=== PATIENT | female | born 1965 | race Caucasian/White ===

== ENCOUNTER 2017-06-03 00:09 | Observation (INO) | payer BC ==
[2017-06-03 00:46] LABS: #Basophils 0.1 thou/uL (0.0-0.2); #Eosinphils 0.2 thou/uL (0.0-0.7); #Lymphocytes 3.4 thou/uL (1.20-3.40); #Monocytes 0.6 thou/uL (0.11-0.59); #Neutrophils 5.8 thou/uL (1.40-6.50); %Basophils 1.1 % (0.0-1.0); %Lymphocytes 33.7 % (21.0-51.0); Hematocrit 43.5 % (36.0-47.0); Mean Platelet Volume 9.8 fL (7.4-10.4); Red Blood Cell (RBC) Count 4.75 mill/uL (4.20-5.40); White Blood Cell (WBC) Count 10.2 thou/uL (4.8-10.8)
[2017-06-03 01:05] LABS: ALT (SGPT) 11 U/L (8-55); AST (SGOT) 15 U/L (5-34); Alkaline Phosphatase 74 U/L (40-150); Anion Gap 9 mmol/L (10-20); BUN (Urea Nitrogen) 20 mg/dL (9.8-20.1); Bilirubin, Total 0.3 mg/dL (0.2-1.2); Calc. Creatinine Clearance 0 mL/min (70-130); Calcium 9.3 mg/dL (7.8-10.44); Carbon Dioxide 31 mmol/L (22-29); Chloride 102 mmol/L (98-107); Estimated GFR-MDRD 61; Globulin 3.1 g/dL (2.4-3.5); Protein, Total 7.2 g/dL (6.0-8.3)
[2017-06-03 01:08] LABS: Troponin I Less than 0.010 ng/mL (< 0.028)
[2017-06-03] MEDS ORDERED: Potassium Chloride 20 MEQ TAB ONE (01:58)
[2017-06-03] MEDS ORDERED: Acetaminophen 325 MG TAB PO PRN (02:44)
[2017-06-03 03:11] VITALS: BMI 25.1
[2017-06-03 04:58] LABS: Troponin I Less than 0.010 ng/mL (< 0.028)
[2017-06-03] MEDS ORDERED: Nitroglycerin 2% Ointment 1 INCH/1 GM Packet TOP SCH (06:00)
[2017-06-03 07:10] LABS: Troponin I Less than 0.010 ng/mL (< 0.028)
[2017-06-03] MEDS ORDERED: Aspirin 325 MG TAB PO SCH (09:00)
--- NOTE | 2017-06-03 09:00 | RAD ---
CHEST ONE VIEW: HISTORY: Chest pain. Shortness of breath. COMPARISON: None. FINDINGS: Normal cardiac silhouette. The pulmonary vessels and hilum are normal. No masses or consolidation . No pneumothorax or osseous abnormalities. IMPRESSION: No acute cardiopulmonary process. POS: [facility]
[2017-06-03 13:41] VITALS: BP 118/57; TEMP 98.8
--- NOTE | 2017-06-03 14:59 | NM ---
NUCLEAR MEDICINE CARDIAC MYOCARDIAL PERFUSION SPECT EJECTION FRACTION STUDY WALL MOTION CINE: HISTORY: 52-year-old hypertensive female with dyslipidemia and chest pain. TECHNIQUE: Number of days: 1 Rest study: Tc99m sestamibi (Cardiolite) dose: 10.2 mCi Exercise stress: treadmill. Stress study: Tc99m sestamibi (Cardiolite) dose: 31.0 mCi FINDINGS: CARDIAC (MYOCARDIAL PERFUSION) SPECT There are no reversible myocardial perfusion defects. EJECTION FRACTION STUDY EF = 71% WALL MOTION CINE Normal. IMPRESSION: No evidence of reversible ischemia. ILIANA Dixon POS: [facility]
== END 2017-06-03 14:24 | disposition home or self-care (01) ==
LOC: ERS 00:09 → 2SW 02:35
PROVIDERS: ADMIT Family Medicine; ATTEND Family Medicine
DX: R07.9 Chest pain, unspecified (principal); E78.5 Hyperlipidemia, unspecified; I10 Essential (primary) hypertension; E03.9 Hypothyroidism, unspecified; R06.02 Shortness of breath; Z79.899 Other long term (current) drug therapy; Z98.890 Other specified postprocedural states; Z82.49 Family history of ischemic heart disease and other diseases of the circulatory system; Z80.1 Family history of malignant neoplasm of trachea, bronchus and lung; Z80.6 Family history of leukemia
CPT/HCPCS: 36415; 71010; 78452; 80053; 80061; 82553; 83690; 84443; 84484; 85025; 93005; 93017; A9500; G0378

== ENCOUNTER 2018-01-13 15:54 | Emergency (ER) | payer BC ==
[~2018-01-13 15:54] MED LIST: Iopamidol 370 76% 100 ML VIAL ONE
[2018-01-13] MEDS ORDERED: Methocarbamol 500 MG TAB ONE (16:34)
[2018-01-13] MEDS ORDERED: Ondansetron HCl/PF 4 MG/2 ML Vial ONE (16:35)
[2018-01-13] MEDS ORDERED: Ketorolac Tromethamine 30 MG/ML VIAL ONE (16:35)
[2018-01-13] MEDS ORDERED: Pantoprazole 40 MG VIAL ONE (16:35)
[2018-01-13 17:00] LABS: #Basophils 0.1 thou/uL (0.0-0.2); #Eosinphils 0.1 thou/uL (0.0-0.7); #Lymphocytes 1.7 thou/uL (1.20-3.40); #Monocytes 0.6 thou/uL (0.11-0.59); #Neutrophils 7.5 thou/uL (1.40-6.50); %Eosinophils 1.3 % (0.0-10.0); %Monocytes 5.4 % (0.0-10.0); %Neutrophils 75.2 % (42.0-75.0); Hemoglobin 16.1 g/dL (12.0-16.0); Mean Corpuscular Hemoglobin 30.4 pg (27.0-31.0); Mean Corpuscular Volume 86.9 fl (81.0-99.0); Mean Platelet Volume 10.2 fL (7.4-10.4); Platelet Count 232 thou/uL (130-400); RBC Distribution Width 12.2 % (11.5-14.5)
[2018-01-13 17:01] LABS: Bilirubin Negative (Negative); Blood, Urine Negative (Negative); Clarity Hazy (Clear); Glucose, Urine (Dipstick) Negative (Negative); Leukocyte Small (Negative); Nitrite Negative (Negative); Protein, Urine (Dipstick) Negative (Neg-Trace); Urobilinogen 0.2 mg/dL (0.2-1.0); pH, Urine 6.5 (5.0-9.0)
[2018-01-13 17:02] LABS: Bacteria/HPF 2+ HPF (None Seen); RBC/HPF None Seen HPF (0-3)
[2018-01-13 17:16] LABS: ALT (SGPT) 45 U/L (8-55); AST (SGOT) 31 U/L (5-34); Albumin 4.5 g/dL (3.5-5.0); Alkaline Phosphatase 66 U/L (40-150); Anion Gap 16 mmol/L (10-20); BUN (Urea Nitrogen) 14 mg/dL (9.8-20.1); Bilirubin, Total 0.7 mg/dL (0.2-1.2); CK (CPK) 37 U/L (29-168); CKMB 1.1 ng/mL (0-6.6); Calc. Creatinine Clearance 0 mL/min (70-130); Calcium 9.8 mg/dL (7.8-10.44); Carbon Dioxide 24 mmol/L (22-29); Chloride 105 mmol/L (98-107); Estimated GFR-MDRD 75; Glucose 89 mg/dL (70-105); Lipase 14 U/L (8-78); Potassium 3.4 mmol/L (3.5-5.1); Protein, Total 7.5 g/dL (6.0-8.3); Sodium 142 mmol/L (136-145); Troponin I Less than 0.010 ng/mL (< 0.028)
[2018-01-13] MEDS ORDERED: traMADol HCl 50 MG TAB ONE (17:59)
--- NOTE | 2018-01-13 18:32 | CT ---
ABDOMEN CT WITH CONTRAST: PELVIS CT WITH CONTRAST: HISTORY: Abdominal pain. Elevated liver enzymes. COMPARISON: 03/10/2014 TECHNIQUE: An abdomen and pelvis CT was performed with IV contrast. Enteric contrast was not administered. Cor onal reformatted images were submitted for interpretation. FINDINGS: ABDOMEN: Chronic changes in the lung bases. Heart size is normal. No significant pericardial fluid . The descending thoracic aorta and abdominal aorta have a normal caliber. No periaortic fat strand ing. Intrahepatic and extrahepatic portal vein is patent. Gallbladder is unremarkable. The liver, spleen, pancreas, and adrenal glands have appropriate enhancement. No gastrohepatic, retrocrural, or periportal lymphadenopathy. No mesenteric mass, lymphadenopathy, f ree air, or free fluid. There are nonspecific, nonenlarged periaortic and aortocaval lymph nodes. Symmetric hyperenhancement of the kidneys. No evidence of obstructive uropathy. There is a subcenti meter hypodensity in the left kidney, which is too small to characterize. Limited evaluation of the alimentary canal. Gastric mucosa, duodenum, and multiple normal caliber sm all bowel loops are noted. The ileocecal junction is normal. Normal caliber appendix. Scattered fe ole material in a nondistended, nondilated colon. Diverticulosis without evidence of diverticulitis. PELVIS: The urinary bladder is decompressed. Trace amount of fluid in the pelvis. No lymphadenopat hy or free air. Heterogeneous uterus with a peripherally enhancing, centrally hypodense focus, measu ring 2.4 cm anteroposterior x 2.8 cm mediolateral x 2.7 cm craniocaudal, suggesting a degenerating fi broid uterus and leiomyoma. Additional leiomyomata may be present. No lytic or blastic lesion in the osseous structures. Stable sclerotic focus in the lower thoracic s pine. IMPRESSION: 1. Nonspecific retroperitoneal lymph nodes. Correlate clinically. 2. No evidence of bowel obstruction. Normal caliber appendix. 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 Correlate clinically with surgical hi story. 3. Uterine leiomyoma, incompletely evaluated. Nonemergent pelvic MRI. POS: [facility]
== END 2018-01-13 18:44 | disposition home or self-care (01) ==
LOC: SCSER 15:54
DX: R10.13 Epigastric pain (principal); M54.6 Pain in thoracic spine; E03.9 Hypothyroidism, unspecified; E78.5 Hyperlipidemia, unspecified; I10 Essential (primary) hypertension; Z79.899 Other long term (current) drug therapy
CPT/HCPCS: 74177; 80053; 81003; 81015; 82553; 83690; 84484; 85025; 87086; 93005; 96361; 96372; 96374; 96375; C9113; J1885; J2405

== ENCOUNTER 2018-02-19 10:12 | Outpatient (CLI) | payer BC | END 2018-02-19 10:13 | disposition home or self-care (01) | LOC: BICMAMMO 10:12 | PROVIDERS: ATTEND Obstetrics & Gynecology | DX: Z12.31 Encounter for screening mammogram for malignant neoplasm of breast (principal); Z80.3 Family history of malignant neoplasm of breast | CPT/HCPCS: 77063; 77067 ==

== ENCOUNTER 2019-09-24 09:03 | Outpatient (CLI) | payer BC ==
--- NOTE | 2019-09-24 10:11 | ULT ---
ABDOMINAL ULTRASOUND: Date: 09/24/2019 HISTORY: Epigastric pain. FINDINGS: The liver, spleen, gallbladder, pancreas, kidneys, and visualized portions of the aorta and IVC appea r normal. The common duct measures 5 mm in diameter. No free fluid is seen. IMPRESSION: Normal exam. POS: [facility]
--- NOTE | 2019-09-24 16:35 | RAD ---
Upper GI series double contrast: DATE: 09/24/2019 HISTORY: 54-year-old female with epigastric pain. TECHNIQUE: Upright administration of effervescent granules and thick liquid barium. Prone MENESES straw administration of thin liquid barium. FINDINGS: The esophagus, stomach, and duodenal bulb, have normal motility, distensibility, and mucosal pattern. There is a small sliding hiatal hernia with mild gastroesophageal reflux visualized. No obvious large ulcer or neoplasm identified. IMPRESSION: Small sliding hiatal hernia. Mild gastroesophageal reflux visualized.
== END 2019-09-24 09:04 | disposition home or self-care (01) ==
LOC: ULT 09:03
PROVIDERS: ATTEND Internal Medicine Gastroenterology
DX: R10.13 Epigastric pain (principal); R19.4 Change in bowel habit; K44.9 Diaphragmatic hernia without obstruction or gangrene; K21.9 Gastro-esophageal reflux disease without esophagitis
CPT/HCPCS: 74246; 93975

== ENCOUNTER 2021-05-22 10:22 | Outpatient (CLI) | payer BC | END 2021-05-22 10:23 | disposition home or self-care (01) | LOC: BICMAMMO 10:22 | PROVIDERS: ATTEND Obstetrics & Gynecology | DX: Z12.31 Encounter for screening mammogram for malignant neoplasm of breast (principal); Z80.3 Family history of malignant neoplasm of breast | CPT/HCPCS: 77063; 77067 ==

== ENCOUNTER 2021-07-21 10:28 | Outpatient (CLI) | payer BC | END 2021-07-21 10:29 | disposition home or self-care (01) | LOC: TBSIIMAG 10:28 | PROVIDERS: ATTEND Neurological Surgery | DX: M47.22 Other spondylosis with radiculopathy, cervical region (principal) | CPT/HCPCS: 72141 ==

== ENCOUNTER 2022-05-23 09:41 | Outpatient (CLI) | payer BC | END 2022-05-23 09:42 | disposition home or self-care (01) | LOC: BICMAMMO 09:41 | PROVIDERS: ATTEND Obstetrics & Gynecology | DX: Z12.31 Encounter for screening mammogram for malignant neoplasm of breast (principal) | CPT/HCPCS: 77063; 77067 ==

== ENCOUNTER 2022-11-15 10:19 | Outpatient (CLI) | payer BC | END 2022-11-15 10:20 | disposition home or self-care (01) | LOC: TBSIIMAG 10:19 | PROVIDERS: ATTEND Neurological Surgery | DX: M25.561 Pain in right knee (principal) ==

== ENCOUNTER 2022-12-07 06:23 | Day surgery (SDC) | payer BC ==
[2022-12-04 10:24] VITALS: BMI 27.3
[2022-12-07] MEDS ORDERED: EPINEPHrine 1 MG/ML AMP ONE (08:36)
[2022-12-07] MEDS ORDERED: Lidocaine 1% (PF) 30 ML VIAL ONE (08:36)
[2022-12-07] MEDS ORDERED: fentaNYL 50 mcg/mL 1 mL Vial ONE ×2 (08:40→10:01)
[2022-12-07] MEDS ORDERED: CEFAZOLIN 2 GM VIAL ONE (08:42)
[2022-12-07] MEDS ORDERED: Sodium Chloride 0.9% 100 ML ONE (08:42)
[2022-12-07] MEDS ORDERED: Lidocaine 1% PF 5 ML VIAL ONE (09:02)
[2022-12-07] MEDS ORDERED: Ondansetron PF 4 MG/2 ML Vial ONE (09:02)
[2022-12-07] MEDS ORDERED: PROPOFOL 200 MG/20 ML VIAL ONE (09:02)
[2022-12-07] MEDS ORDERED: Dexamethasone 20 MG/5 ML VIAL ONE (09:02)
[2022-12-07] MEDS ORDERED: Acetaminophen/Codeine 30-300mg Tablet ONE (10:56)
== END 2022-12-07 12:01 | disposition home or self-care (01) ==
LOC: SDC 06:23
PROVIDERS: ATTEND Neurological Surgery
PROC: 01N50ZZ Release Median Nerve, Open Approach (ICD-10-PCS; principal; 2022-12-07)
DX: G56.02 Carpal tunnel syndrome, left upper limb (principal); M25.561 Pain in right knee; M72.2 Plantar fascial fibromatosis; E78.5 Hyperlipidemia, unspecified; M19.90 Unspecified osteoarthritis, unspecified site; I10 Essential (primary) hypertension; Z79.890 Hormone replacement therapy; Z79.899 Other long term (current) drug therapy; Z98.890 Other specified postprocedural states
CPT/HCPCS: J0171; J1100; J2001; J2405; J2704; J3010; J3490

== ENCOUNTER 2023-01-31 09:46 | Outpatient (CLI) | payer BC | END 2023-01-31 09:47 | disposition home or self-care (01) | LOC: BICMRI 09:46 | PROVIDERS: ATTEND Neurological Surgery | DX: G56.02 Carpal tunnel syndrome, left upper limb (principal); M94.8X3 Other specified disorders of cartilage, forearm; Z98.890 Other specified postprocedural states | CPT/HCPCS: 82565 ==

== ENCOUNTER 2023-06-13 11:36 | Outpatient (CLI) | payer BC | END 2023-06-13 11:37 | disposition home or self-care (01) | LOC: BICMAMMO 11:36 | PROVIDERS: ATTEND Obstetrics & Gynecology | DX: Z12.31 Encounter for screening mammogram for malignant neoplasm of breast (principal); Z80.3 Family history of malignant neoplasm of breast | CPT/HCPCS: 77063; 77067 ==

== ENCOUNTER 2024-06-22 10:27 | Outpatient (CLI) | payer BC | END 2024-06-22 10:28 | disposition home or self-care (01) | LOC: BICMAMMO 10:27 | PROVIDERS: ATTEND Obstetrics & Gynecology | DX: Z12.31 Encounter for screening mammogram for malignant neoplasm of breast (principal); Z80.3 Family history of malignant neoplasm of breast | CPT/HCPCS: 77063; 77067 ==

== ENCOUNTER 2025-07-06 09:50 | Outpatient (CLI) | payer OTHER | END 2025-07-06 09:51 | disposition home or self-care (01) | LOC: BICMAMMO 09:50 | PROVIDERS: ATTEND Nurse Practitioner Family | DX: Z12.31 Encounter for screening mammogram for malignant neoplasm of breast (principal); Z80.3 Family history of malignant neoplasm of breast | CPT/HCPCS: 77063; 77067 ==

== ENCOUNTER 2025-07-13 11:25 | Outpatient (CLI) | payer OTHER | END 2025-07-13 11:26 | disposition home or self-care (01) | LOC: ULT 11:25 | PROVIDERS: ATTEND Internal Medicine Gastroenterology | DX: R10.13 Epigastric pain (principal) | CPT/HCPCS: 76705 ==